=== PATIENT | male | born 1965 | race Caucasian/White ===

== ENCOUNTER 2020-04-21 07:50 | Day surgery (SDC) | payer OTHER ==
[~2020-04-21] VITALS: Ht 193 cm; Wt 102.1 kg
[~2020-04-21 07:50] MED LIST: ACID CONTROL150 MG PO; DAILY MULTIPLE1 EACH PO; FLOMAX0.4 MG PO; GAVISCON ES TA1 EACH PO; HYDROMORPHONE HC4 MG PO; LOSARTAN-HCTZ1 EAC2 PO; MAGNESIUM100 MG PO; MAPAP500 M1 PO; MOTRIN IB200 MG PO; OMEPRAZOLE20 MG PO; PAPAYA ENZYME1 EACH PO; SAW PALMETTO80 MG PO
[2020-04-21] MEDS ORDERED: METAMUCIL660 GM (08:14)
[2020-04-21] MEDS ORDERED: IBUPROFEN600 MG PO (10:44)
[2020-04-21] MEDS ORDERED: TYLENOL EXTRA500 MG PO (10:45)
[2020-04-21] MEDS ORDERED: OXYCODON-ACETA1 EAC2 PO (10:45)
--- NOTE | 2020-04-21 17:46 | OR ---
[facility] [address], [place] [address] Signed DATE OF OPERATION: 04/21/2020 SURGEON: Damian Mo MD PREOPERATIVE DIAGNOSIS: Right inguinal hernia. POSTOPERATIVE DIAGNOSIS: Right indirect inguinal hernia. PROCEDURE: Repair of right indirect inguinal hernia with implantation of Prolene mesh (underlay technique). ANESTHESIA: General; Ravi Minoo, HIDE AND SKIN COLERER, and local 20 mL of 0.25% Marcaine with epinephrine. INDICATION: This 54-year-old white man is a patient Dr. Mago Syed, who is noted to have a bulge in the right groin. This is reducible, consistent with right inguinal hernia. He has had increasing symptoms of pain, accelerating even in the past several days. He showed no evidence of incarceration or signs of bowel obstruction. He is admitted at this time to undergo repair of the right inguinal hernia understanding the risks of bleeding, infection, recurrence, and other unforeseen complications. Understanding this, he wished to proceed. FINDINGS: A moderate-sized indirect sac was noted. It had no sign of sliding component. High ligation and excision of the sac were undertaken. The sac itself had a cord-like nodule associated with it, which might have been a vestigial vas deferens. Actual vas deferens was easily identified and completely preserved. The floor of the canal was attenuated as well. Implantation of Prolene mesh in an underlay technique was used to repair the floor. PROCEDURE IN DETAIL: The patient was brought to the operating room, given a general anesthetic. Preoperative antibiotic Ancef was given. Sequential compression device stockings were used and heparin subcutaneously administered. The lower abdomen was clipped and prepared with chlorhexidine solution and draped sterilely. A small incision was made cephalad to the pubic tubercle on the right. Dissection was carried through the subcutaneous tissue Electronically Signed By: DAMIAN MO MD 04/21/20 1746 PATIENT NAME: VIOLETA PITTMAN OPERATIVE REPORT DATE OF : 61 REPORT #: [id number] PHYSICIAN: DAMIAN MO MD PCP: MAGO SYED MD REPORT IS CONFIDENTIAL AND NOT TO BE RELEASED WITHOUT AUTHORIZATION [facility] [address], [place] [address] Signed with blunt and electrocautery dissection. The external oblique was incised along its fibers revealing the underlying cord. An ilioinguinal nerve branch was dissected free from the cremasteric muscle fibers and dissected proximally allowing for reflection around the external oblique inferiorly. The cord was then mobilized from the floor with blunt electrocautery dissection and encircled with a Marva drain. Circumferential division of the cremasteric muscle fibers was undertaken on the cord revealing the underlying hernia sac. This was dissected free from the cord structures with meticulous care, identifying well the vas deferens. The cord once completely from the hernia sac showed the vas deferens quite easily, but there was a dense cord-like abnormality of the hernia sac itself. It had no proximal or distal origin or insertion and appeared to be somewhat of a vestigial vas deferens. The hernia sac was opened and there was found to be no sliding component. The neck of the hernia sac was secured with 2-0 silk suture doubly applied and redundant hernia sac amputated and passed for pathology. Note was made to the pathologist of possible accessory or vestigial vas deferens associated with the hernia sac. Irrigation was undertaken and further evaluation of the floor undertaken. The fascia of the transversalis was markedly attenuated. An Allis clamp was applied to the tendon of the transversus abdominis and the floor of the canal was incised. Blunt dissection was used to separate the properitoneal fat. A segment of Prolene mesh was cut to an elliptical configuration and secured in an underlay technique with interrupted 2-0 Prolene sutures. A defect was cut in the graft to accommodate the cord. The tails of the graft were meticulously secured laterally taking extreme care to avoid incorporation of the ilioinguinal nerve, which was well visualized and out of harm's way. Additional sutures were used to close the aperture at the cord exit from the mesh so that it was snugged, but not tight. A 20 mL of 0.25% Marcaine with epinephrine was injected locally. The ilioinguinal nerve was replaced into the inguinal canal in association with the cord. The external oblique was reapproximated with running 2-0 Vicryl suture. Gina's layer was reapproximated with interrupted 2-0 Vicryl and skin closed with running subcuticular of 3-0 Vicryl. Steri-Strips were applied as was the silver sponge dressing. The patient tolerated the procedure well, was extubated without problem, taken to the recovery room in good condition. Sponge, needle, and instrument counts were reported as correct x3. Blood loss was minimal. Damian Mo MD /MICHELINEL /[id number] Electronically Signed By: DAMIAN MO MD 04/21/20 1746 PATIENT NAME: VIOLETA PITTMAN OPERATIVE REPORT DATE OF : 61 REPORT #: [id number] PHYSICIAN: DAMIAN MO MD PCP: MAGO SYED MD REPORT IS CONFIDENTIAL AND NOT TO BE RELEASED WITHOUT AUTHORIZATION [facility] [address] [place] [address] Signed cc: Mago Syed MD Copies: MAGO SYED MD ~ Electronically Signed By: DAMIAN MO MD 04/21/20 1746 PATIENT NAME: VIOLETA PITTMAN OPERATIVE REPORT DATE OF : 61 REPORT #: [id number] PHYSICIAN: DAMIAN MO MD PCP: MAGO SYED MD REPORT IS CONFIDENTIAL AND NOT TO BE RELEASED WITHOUT AUTHORIZATION
== END 2020-04-21 13:00 | disposition home or self-care (01) ==
LOC: DS 07:50
PROVIDERS: Surgery
PROC: 0YU50JZ Supplement Right Inguinal Region with Synthetic Substitute, Open Approach (ICD-10-PCS; principal; 2020-04-21 09:15)
DX: K40.90 Unilateral inguinal hernia, without obstruction or gangrene, not specified as recurrent (principal); I10 Essential (primary) hypertension; K21.9 Gastro-esophageal reflux disease without esophagitis; Z88.6 Allergy status to analgesic agent; Z88.2 Allergy status to sulfonamides; Z79.899 Other long term (current) drug therapy
CPT/HCPCS: 00830; C1781; J0690; J1100; J1644; J1885; J2001; J2405; J2704; J3010; J7121